=== PATIENT | female | born 1985 | race Caucasian/White ===

== ENCOUNTER 2017-08-13 11:03 | Emergency (ER) | payer BC, SELFPAY ==
[2017-08-13 11:04] VITALS: BP 131/63; PULSE 95; RESP 18; TEMP 36.6; O2SAT 100; BMI 23.9
[2017-08-13 12:42] LABS: Absolute Lymphocyte Count 0.83 X10^3/ul (0.83-4.51); Absolute Neutrophil Count 4.8 X10^3/uL (2.0-7.7); Basophil# 0.01 X10^3/uL; Basophil% 0.2 % (0-1); Eosinophil# 0.01 X10^3/uL; Eosinophils% 0.2 % (0-5); Hematocrit 42.8 % (37-47); Hemoglobin 14.3 g/dl (12.0-15.0); Lymphocyte # 0.83 X10^3/ul (4.0); Lymphocyte % 13.4 % (19-41); Mean Corp Hgb Conc 33.4 g/gl (32-36); Mean Corpuscular Hgb 29.8 pg (27.0-32.0); Mean Corpuscular Volume 89.2 fL (81-99); Mean Platelet Vol. 9.6 fl (6.2-12.0); Monocyte% 8.1 % (0-10); Neutrophil # 4.83 X10^3/uL (2.7-7.7); Neutrophil % 77.9 % (47-70); POSITIVE COUNT NO; POSITIVE DIFFERENTIAL NO; POSITIVE MORPHOLOGY NO; Platelet Count 236 K/mm3 (150-450); RBC Distribution Width CV 13.2 % (11.6-14.6); White Blood Count 6.2 K/mm3 (4.4-11.0)
[2017-08-13] MEDS: 0.9% Normal Saline 1,000 ML 1000 ML IV (12:46)
[2017-08-13 12:59] LABS: Pregnancy, Serum, hCG Quali. NEGATIVE Negative (0-9 Nonpreg)
--- NOTE | 2017-08-13 13:02 | US_ITS ---
STUDY: ULTRASOUND OF THE FEMALE PELVIS - COMPLETE REASON FOR EXAM: Female, 32 years old. Left lower quadrant pain. LMP: August 07, 2013. TECHNIQUE: Transabdominal TECHNICAL QUALITY: Adequate. COMPARISON: None. FINDINGS: The uterus is anteverted and is in a midline position. The uterus measures 13.1 cm x 7.6 cm x 4.8 cm. Normal uterine cervix. The endometrium measures 11.5 mm in thickness, and is heterogeneous (striated). There is no demonstrated endometrial mass. There is no demonstrated myometrial mass. I.U.D. - The patient does not have an I.U.D. The right ovary is visualized. The right ovary measures 3.3 cm x 2.0 cm x 2.5 cm. There is no right ovarian cyst or ovarian mass. There is no visualized right adnexal mass or complex lesion. There is normal arterial and normal venous vascularity. The left ovary is visualized. The left ovary measures 3.6 cm x 3.0 cm x 2.6 cm. There is a 2.3 cm x 2.0 cm x 1.9 cm cyst. There is no visualized left adnexal mass or complex lesion. There is normal arterial and normal venous vascularity. There is no fluid in the cul-de-sac. The pre void volume of the bladder was 431 ml. Polycystic ovary disease: No. US/Transvaginal Non- IMPRESSION: 2.3 cm x 2.0 cm x 1.9 cm left ovarian cyst. Electronically Signed: Cornel Lynn MD at 14:59 EDT Tel [phone], Service support ,
[2017-08-13 14:52] VITALS: BP 114/67; PULSE 71; RESP 16; O2SAT 100
--- NOTE | 2017-08-13 15:10 | ED.DCSUM_ITS ---
- ER Visit Summary Date of Service: 08/13/17 Chief Complaint: Abnormal vaginal bleeding History of Present Illness: The patient is a [address] Davide Swain. She is a . She reports that 9 days ago she felt as though she had a miscarriage. States that she had had brown spotting for approximately 4 days that was light. She went out to dinner and stood up and there was a large amount of bleeding. States that there were blood clots present for approximately 3 hours. Tapered off and stopped approximately 7 days ago. Patient has not taken a test. She has had a bilateral tubal ligation. Patient reports that she has had intermittent lower abdominal pain for the past 1-1/2 months. It lasts seconds at a time. She describes it as sharp. Is 6 out of 10 at worst and she is pain-free currently. Is worsened by nothing and relieved by nothing. She has had nausea without vomiting. No diarrhea. Her last bowel was today. She has had no melena or hematochezia. No dysuria or frequency. Physical Examination: Vitals: Stable. Afebrile. General: Well-nourished and well-developed. Head: Normocephalic atraumatic. Neck: Supple, no lymphadenopathy. No JVD. Nontender. Cardiovascular: Regular rate and rhythm. No murmurs. Respiratory: No respiratory distress. Clear to auscultation bilaterally. Abdominal: Soft, mild suprapubic tenderness to palpation, nondistended, normal bowel sounds. No guarding, rebound, or peritoneal signs. Back: Nontender. Extremities: Nontender, no edema. Skin: Normal color, no rash. Neurologic: Alert and oriented ?3. Cranial nerves II through XII are intact. Normal strength and sensation. Psych: Normal affect. Test Results: test was negative. CBC is marked for segment neutrophils 70 lymphocytes of 13. Of note her hemoglobin is 14.3. Transvaginal ultrasound shows a 2.3 x 2.0 x 1.9 cm left ovarian cyst and is otherwise normal. Emergency Department Course and Treatment: Patient is resting comfortably refused pain or nausea medications. Treatment Plan: Patient was discussed with Dr. Davide Swain and will be discharged instructions to follow-up with her she continues to have irregular vaginal bleeding. Return to the emergency department for any worsening symptoms. Disposition: To home in improved and stable condition. Impression: 1. Irregular vaginal bleeding. This note was generated with [employer] dictation software. It may contain incorrect words, spelling, and punctuation that were not noted in review of the chart prior to signing ED Disposition - Plan for ED Patient: Disposition: Home or Assisted Living Chief Complaint: Abd Pain Instructions: ED Bleed Irregular Vaginal Referrals: Jocelin Nick MD [STAFF PHYSICIAN] - 1-2 Weeks
[2017-08-13 15:25] VITALS: BP 112/60; PULSE 70; RESP 16; O2SAT 99
== END 2017-08-13 15:26 | disposition home or self-care (01) ==
LOC: ED 12:31
PROVIDERS: Emergency Provider Emergency Medicine
DX: N92.6 Irregular menstruation, unspecified (principal); N83.202 Unspecified ovarian cyst, left side; R11.0 Nausea
CPT/HCPCS: 76830; 84703; 85025; 93976; 99283; J7030

== ENCOUNTER → 2017-11-08 10:20 | Outpatient (CLI) | payer BC, SELFPAY ==
[2017-11-09 20:07] LABS: Endomysial Antibody IgA Negative (Negative)
[2017-11-10 14:08] LABS: Immunoglobulin A 103 mg/dL (87-352); t-Transglutaminase IgA <2 U/mL (0-3)
== END ==
PROVIDERS: Family Provider Family Medicine; PCP Family Medicine; Visit Provider Family Medicine
DX: R14.0 Abdominal distension (gaseous) (principal)
CPT/HCPCS: 36415; 82784; 83516; 86255

== ENCOUNTER → 2019-12-11 | Outpatient (CLI) | payer BC, SELFPAY ==
[2019-12-11 09:47] VITALS: BMI 25.5
[2019-12-16 18:29] LABS: HPV APTIMA, High Risk Negative (Negative)
== END | disposition home or self-care (01) ==
LOC: LABSPEC 12:14
PROVIDERS: PCP Family Medicine; Visit Provider Nurse Practitioner Women's Health
DX: Z12.4 Encounter for screening for malignant neoplasm of cervix (principal)
CPT/HCPCS: 87624; 88175; G0145

== ENCOUNTER → 2020-07-06 13:07 | Outpatient (CLI) | payer BC, SELFPAY ==
[2019-12-11 09:47] VITALS: BMI 25.5
--- NOTE | 2020-07-06 13:13 | ECHOD_ITS ---
Reason For Study: Murmur Procedure This was a 2D Doppler, Color Flow transthoracic echocardiogram. The exam was of adequate technical quality. Exam performed in department. Left Ventricle Normal LV size. Left ventricular systolic function is normal. The estimated ejection fraction is 65 %. No evidence for diastolic dysfunction. No regional wall motion abnormalities noted. Right Ventricle Normal RV size. Normal systolic function. Atria Normal left atrium. Normal right atrium. No doppler evidence for ASD. Mitral Valve There is no mitral annular calcification. Normal mitral valve. Trivial mitral valve insufficiency. Tricuspid Valve Normal tricuspid valve. Trivial tricuspid valve insufficiency. Unable to estimate RV systolic pressure due to insufficient tricuspid regurgitant envelope. Aortic Valve Trisinus/trileaflet aortic valve. Mild focal aortic valve calcification. Pulmonic Valve The pulmonic valve is not well visualized. Trivial pulmonic valve insufficiency. Great Vessels Normal sized aortic root. Pericardium/Pleural No pericardial effusion. MMode/2D Measurements & Calculations LVIDd: 4.3 cm IVSd: 0.81 cm Ao root diam: 2.4 cm LVIDs: 2.7 cm LVPWd: 0.89 cm RVDd: 2.6 cm FS: 37.4 % LAV(MOD-bp): 33.1 ml LVAd ap4: 28.0 cm2 LVAd ap2: 29.8 cm2 LAV(MOD-bp) Indexed: 17.8 ml/m2 LVLd ap4: 7.9 cm LVLd ap2: 8.2 cm LAV(MOD-sp2): 32.9 ml EDV(MOD-sp4): 83.0 ml EDV(MOD-sp2): 90.7 ml LAV(MOD-sp4): 32.2 ml EDV(sp4-el): 84.3 ml EDV(sp2-el): 92.2 ml LVAs ap4: 14.8 cm2 LVAs ap2: 15.4 cm2 LVLs ap4: 6.7 cm LVLs ap2: 6.8 cm ESV(MOD-sp4): 27.9 ml ESV(MOD-sp2): 29.9 ml ESV(sp4-el): 27.7 ml ESV(sp2-el): 29.9 ml EF(MOD-sp4): 66.3 % EF(MOD-sp2): 67.0 % EF(sp4-el): 67.1 % SV(MOD-sp4): 55.0 ml SV(MOD-sp2): 60.8 ml SV(sp4-el): 56.6 ml LA dimension(2D): 3.2 cm LA A4 area: 13.1 cm2 RA A4 area: 12.0 cm2 Doppler Measurements & Calculations MV E max kyrie: 82.0 cm/sec Lat Peak E' Kyrie: 15.3 cm/sec Med Peak E' Kyrie: 13.8 cm/sec MV A max kyrie: 54.8 cm/sec E/E' lat: 5.4 E/E' med: 6.0 MV E/A: 1.5 Ao V2 max: 135.8 cm/sec LV V1 max: 110.5 cm/sec PA V2 max: 104.8 cm/sec Ao max P.4 mmHg LV V1 max P.9 mmHg ECHO/Echo Complete Interpretation Summary Left ventricular systolic function is normal. The estimated ejection fraction is 65 %. Trivial mitral valve insufficiency. Trivial tricuspid valve insufficiency. Mild focal aortic valve calcification. Trivial pulmonic valve insufficiency. Unable to estimate RV systolic pressure due to insufficient tricuspid regurgita nt envelope. No evidence for diastolic dysfunction. Ordering Physician: Perla Cuevas Referring Physician: Perla Cuevas Performed By: Sobia Walker RDCS
== END ==
PROVIDERS: PCP Family Medicine; Referring Provider Family Medicine; Visit Provider Family Medicine
DX: R01.1 Cardiac murmur, unspecified (principal)
CPT/HCPCS: 93306

== ENCOUNTER 2020-07-07 21:16 | Emergency (ER) | payer BC, SELFPAY ==
[2019-12-11 09:47] VITALS: BMI 25.5
[2020-07-07 21:17] VITALS: BP 144/76; PULSE 77; RESP 18; TEMP 36.6; O2SAT 100; BMI 25.5
--- NOTE | 2020-07-07 21:47 | CT_ITS ---
HISTORY: headache TECHNIQUE: Multiple axial images were obtained of the brain without intravenous contrast. A radiation dose optimization technique was used for this scan. IV Contrast dosage and agent: None. COMPARISON: None FINDINGS: # of images incl. paperwork: [id number] PARANASAL SINUSES AND MASTOID AIR CELLS: Clear. INTRACRANIAL HEMORRHAGE: None. BRAIN PARENCHYMA: No CT evidence of stroke. No intracranial masses. There is preservation of the carter/white matter interface. Posterior fossa structures are unremarkable. CSF SPACES: Appropriate for age. There is no hydrocephalus. MASS EFFECT: None. CALVARIUM: Intact. CT/Brain/Head without Contrast IMPRESSION: No acute intracranial findings. Individualized dose optimization techniques were used for this CT. at 2211 Reported and signed by: Jose Luis Robles MD Electronically Signed: Jose Luis Robles MD at 22:10 EDT Tel , Service support ,
--- NOTE | 2020-07-07 21:47 | CT_ITS ---
HISTORY: neck pain EXAMINATION: CT Spine Cervical W/O Contrast Injection TECHNIQUE: Helically acquired images were obtained of the cervical spine. 2D reformatted images were reviewed. A radiation dose optimization technique was used for this scan. IV Contrast dosage and agent: None. COMPARISON: None FINDINGS: VERTEBRAE: No fracture or traumatic subluxation. No discrete lytic or blastic abnormality observed. Normal alignment. Normal craniocervical junction and cervicothoracic junction. DISCS and SPINAL CANAL: Disc heights are preserved. No significant stenosis. NECK SOFT TISSUES: No prevertebral soft tissue swelling. There is no cervical adenopathy. LUNG APICES: Clear. CT/Spine Cervical without Contras IMPRESSION: Unremarkable study. Individualized dose optimization techniques were used for this CT. at 2214 Reported and signed by: Jose Luis Robles MD Electronically Signed: Jose Luis Robles MD at 22:13 EDT Tel , Service support ,
--- NOTE | 2020-07-07 21:48 | EX.ED.DYSGE1 ---
HPI History of Present Illness Chief Complaint: Numb/Ting Narrative Narrative: 35-year-old female presenting with intermittent left posterior headache and an intermittent numbness and tingling in the left arm as well as headache. She states this has been a problem for years. She states it seems to come every 3 weeks. It resolved spontaneously. She has history of migraine and states that this does not feel the same. She denies any trauma. She was seen by her primary care physician who thought maybe she had sinusitis and put her on antibiotics and this did not work. Patient states that she has not had any sinus drainage or congestion. She is not had fever or chills. She denies nausea or vomiting. Patient is now currently awaiting a CT of her brain outpatient and comes to be evaluated tonight due to these recurrent issues. PFSH PFSH Home Medications L norgest/E estradiol-E estrad 0.10 mg-20 mcg (84)/10 mcg(7) tabs,3mos 1 tab PO DAILY #91 tab 12/11/19 [Rx Last Taken Unknown] loratadine 10 mg tablet 10 mg PO DAILY 12/11/19 [History Last Taken Unknown] Allergy/AdvReac Type Severity Reaction Status Date / Time Penicillins [PCN] Allergy Nausea Verified 07/07/20 21:19 Family History Mother Myocardial infarction at age 35 Grandmother Breast cancer Surgical History tubaligation Social History number of children: 2 current occupational status: unemployed current occupation: stay at home mom Smoking Status: Never smoker alcohol intake: never substance use type: does not use caffeine: Yes Type: coffee and tea Number of servings: 4 what type of physical activity do you participate in: walking frequency: daily seatbelt use: sometimes do you feel safe at home: Yes additional social history: A[employer] ED Constitutional Constitutional ED: Denies chills, fever(s) or sweats Eyes Eyes: Denies blurry vision or change in vision ENT ENT ED: Denies ear pain, rhinorrhea or sore throat Cardiovascular Cardiovascular: Denies chest pain, palpitations or racing heartbeat Respiratory/Chest Respiratory/Chest: Denies cough, dyspnea or sputum Gastrointestinal Gastrointestinal: Denies abdominal pain, constipation, diarrhea or vomiting Genitourinary Genitourinary ED: Denies dysuria, hematuria or urinary frequency Musculoskeletal Musculoskeletal: Reports neck pain; Denies arthralgias or myalgias Integumentary Denies abscess, Abrasions or rash Neurologic Neurologic: Reports headache(s) and paresthesias; Denies weakness Psychiatric Psychiatric: Denies anxiety, depression, suicidal ideation or suicidal thoughts Endocrine Endocrinology: Denies polydipsia or polyuria EXAM Physical Exam Const Vital Signs: 07/07/20 21:17 Temperature 97.9 F Temperature Source Temporal Pulse Rate 77 Respiratory Rate 18 Blood Pressure 144/76 H Blood Pressure Mean 98 Pulse Ox 100 Oxygen Delivery Method Room Air Positive well nourished General Appearance ED: NAD HEENT trauma and tenderness Eyes PERRL and EOMs intact bilaterally Neck no lymphadenopathy and supple Chest Wall inspection of chest normal and palpation of chest normal Resp normal respiratory effort and clear to auscultation bilaterally Cardio regular rate, regular rhythm and no murmurs Back/Spine Back/Spine Narrative: Tenderness to palpation left cervical paraspinal musculature as well as the left medial scapula. There is no midline deformity or step-off. Extremity Extremity Narrative: 5/5 motor strength in bilateral upper extremities. Neuro oriented x3 and CN's II-XII intact bilaterally Neuro Narrative: Patient complains of subjective heaviness of left arm however she is having no trouble using it and has 5/5 motor strength throughout the left upper extremity. Sensation is normal. Sensorium / Orientation: alert Motor Exam: strength 5/5 throughout Psych mental status grossly normal Skin no rashes or lesions noted and no wounds MDM MDM MDM Narrative Medical decision making narrative: Patient presenting with symptoms which are intermittent and come seemingly once a month. I did obtain CT imaging of the brain and the cervical spine with no acute findings found by radiology. Patient's neurologic exam is normal with exception of subjective feeling of heaviness in the left arm however she does not have any motor or neurologic deficits that I can find. She has some tingling throughout her whole upper extremity but no decreased sensation. Patient states is been going on for years and intermittent so I think this is less likely a stroke or venous thrombosis. Her symptoms sound more like cervical radiculopathy. patient counseled on following up with her PCP to ensure resolution. Impression: 1. Cervical radiculopathy Radiography Diagnostic Testing: Radiology Impression Brain CT 07/07/20 21:47 IMPRESSION: No acute intracranial findings. Individualized dose optimization techniques were used for this CT. at 2211 Reported and signed by: Jose Luis Robles MD Electronically Signed: Jose Luis Robles MD at 22:10 EDT Tel , Service support , Cervical Spine CT 07/07/20 21:47 IMPRESSION: Unremarkable study. Individualized dose optimization techniques were used for this CT. at 2214 Reported and signed by: Jose Luis Robles MD Electronically Signed: Jose Luis Robles MD at 22:13 EDT Tel , Service support , Discharge Plan Triage Chief Complaint: Numb/Ting ED Provider: Adam Lopez Dx/Rx/DC Orders Instructions: ED Radiculopathy, Cervical Prescriptions: No Action loratadine [Claritin] 10 mg tablet 10 mg PO DAILY RF: 0 L norgest/e.estradiol-e.estrad [Camrese Lo] 0.10 mg-20 mcg (84)/10 mcg (7) tablets,dose pack,3 month 1 tab PO DAILY Qty: 91 RF: 4 Primary Care Provider: Perla Cuevas Referrals: Perla Cuevas MD [Primary Care Provider] -
[2020-07-07 23:21] VITALS: BP 136/84; PULSE 90; RESP 15; O2SAT 98
--- NOTE | 2020-07-07 23:23 | ED.RN ---
addition documentation on paper charting. idalmis [id number]
== END 2020-07-07 23:24 | disposition home or self-care (01) ==
PROVIDERS: Emergency Provider Student in an Organized Health Care Education/Training Program; PCP Family Medicine
DX: M54.12 Radiculopathy, cervical region (principal); R51.9 Headache, unspecified
CPT/HCPCS: 70450; 72125; 99283